=== PATIENT | female | born 1980 | race Caucasian/White ===

== ENCOUNTER 2020-11-19 07:13 | Inpatient (IN) | payer OTHER ==
[~2020-11-19] VITALS: Ht 154.9 cm; Wt 73.9 kg
[2020-11-19 07:17] VITALS: BP 120/63
--- NOTE | 2020-11-19 09:42 | NUR ---
UNABLE TO OBTAIN IV ACCESS. DR MADRIGAL AT THE BEDSIDE ATTEMPTING WITH ULTRASOUND
--- NOTE | 2020-11-19 09:53 | NUR ---
DR MADRIGAL UNABLE TO OBTAIN IV ACCESS AT THIS TIME.
[2020-11-19 11:54] LABS: BASOPHILS 0.2 % (0.0-2.0); HEMATOCRIT 40.3 % (37.0-47.0); HEMOGLOBIN 13.6 gm/dL (12.0-15.0); LYMPHOCYTES 12.1 % (24.0-44.0); MCH 28.5 pg (26.0-34.0); MCHC 33.7 g/dL (28.0-37.0); MCV 84.7 fL (80.0-100.0); MONOCYTES 3.2 % (1.0-8.0); PLATELET COUNT 302 thou/uL (150-400); POLYS 84.5 % (36.0-66.0); RBC 4.76 mil/uL (4.20-5.00); RDW 13.2 % (10.5-14.5); WBC 8.3 thou/uL (4.0-11.0)
[2020-11-19 12:04] VITALS: BP 132/86
[2020-11-19 12:05] LABS: CALCIUM 8.8 mg/dL (8.5-10.1); CREATININE 0.6 mg/dL (0.6-1.0); POTASSIUM 3.8 mmol/L (3.5-5.1)
[2020-11-19 14:45] VITALS: BP 132/86
[2020-11-19 15:07] VITALS: BP 112/70
[2020-11-19 15:31] VITALS: BP 114/84
--- NOTE | 2020-11-19 16:32 | NUR ---
ASSUMED PT CARE AT 1330 FROM ER. PT IS ALERT & ORIENTED X4 AND CITIZEN OF [place] SPEAKER. PT HAS IV SITE ON L AC 20 GAUGE SALINE LOCKED. PT HAS BOOTS ON R FOOT. PT HAS EXTERNAL CATH IN PLACE. PT C/O OF PAIN ON R FOOT AND L ANKLE. GIVEN PAIN MEDICATION PER PT REQUEST. FINISHED ADMISSION. PT WILL BE NPO AFTER MIDNIGHT AND WILL HAVE SURGERY KATHERINE. PT DAUGHTER AT THE BEDSIDE. PT ON THE BED, BED ON THE LOWEST POSITION, SIDE RAILS UP, CALL LIGHT WITHIN REACH. WILL CONTINUE TO MONITOR PT. FOLLOW POC.
[2020-11-19 20:00] VITALS: BP 113/74
--- NOTE | 2020-11-20 01:42 | NUR ---
ASSUMED CARFE OF PT AT 1900. BEDSIDE REPORT RECIEVED. FAMILY MEMBERS AT BEDSIDE. EMILIE ASSESSMENT COMPLETE. RLE IN IMMOBILZER BOOT. LLE SPLINTED IN BRACE C SCOTT WRAP. PT C/O 10/10 PAIN IN BLE. PAIN MEDS GIVEN ORDERED, REPOSITIONING FOR COMFORT. PT NPO AT MIDNIGHT D/T SURGERY IN AM, PROVIDED EDUCATION TO PT AND FAMILY MEMBER, VERBALIZED UNDERSTANDING. L AC PIV CDI, PATENT. CONTINUING TO MONITOR PT, ALL NEEDS MET, [facility].
[2020-11-20 04:30] VITALS: BP 112/76
[2020-11-20 07:52] VITALS: BP 124/79
--- NOTE | 2020-11-20 10:14 | NUR ---
ASSUMED PT CARE THIS AM. PT IS ALERT & ORIENTED X4. PT HAS IV SITE ON LAC SALINE LOCKED. PT IS GREEK SPEAKER. PT IS ON ROOM AIR. PT IS CURRENTLY HAVING SURGERY. AWAITING FOR PT. PT DAUGHTER AT THE BEDSIDE WAITING. WILL CONTINUE TO MONITOR PT. FOLLOW POC.
[2020-11-20 12:34] VITALS: BP 114/78
[2020-11-20 14:08] VITALS: BP 129/82
[2020-11-20 19:22] VITALS: BP 105/59
[2020-11-21 04:49] VITALS: BP 93/55
--- NOTE | 2020-11-21 04:52 | NUR ---
PT SLEPT MOST PART OF THE NIGHT, REPORTED PAIN ON THE LEFT FOOT PRN MEDICATION ADMINISTERED, NO ADVERSE REACTION NOTED, WENT BACK TO SLEEPING CALL LIGHT WITHIN REACH, LIGHTS OFF WILL CONTINUE TO MONITOR.
[2020-11-21 08:20] VITALS: BP 103/66
--- NOTE | 2020-11-21 11:34 | NUR ---
ASSESSMENT: CM REVIEWED CHART. PT IS MALAYSIAN SPEAKING PRIMARILY BUT FAMILY IS AT THE BEDSIDE AND SPEAKS [place]. PT LIVES IN A HOUSE WITH HER FAMILY. PT WAS ADMITTED AFTER A FALL AND LEFT ANKLE FX. PT IS S/P ORIF. PT REPORTS THAT HER CAN BUILT A RAMP TO ENTER THE HOME AND THEY HAVE 3 STEPS. PT REPORTS THAT NORMALLY SHE WAS INDEPENDENT WITH ADLS AND AMBULATION BUT REPORTS THEY DO HAVE FAMILY MEMBERS THAT THEY CAN BORROW A WHEELCHAIR AND CRUTCHES FROM AND THINK THEY MAY ALSO HAVE A WALKER. CM NOTIFIED PT TO VERIFY WITH FAMILY AND LEFT CM KNOW CM CAN ATTEMPT TO ASSIST WITH ANY NEEDED EQUIPMENT. PT DOES NOT HAVE INSURANCE. CM PROVIDED PATIENT WITH SAFETY NET CLINICS/ HEALTH RESOURCE PACKET. PT CONTINUES TO WORK WITH THERAPIES. CM WILL CONTINUE TO FOLLOW TO ASSIST NEEDED.
--- NOTE | 2020-11-21 15:19 | O ---
[facility] [address] OPERATIVE REPORT Name: JUANITA SOLIMAN Room #: 440-P ADM IN M.R.#: [id number] Admission: 11/19/20 Attend Phys: Adrian Sanchez, Discharge: Date of : 80 Report #: [id number] THIS REPORT FOR: cc: FAM - Clinic physician unknown FAM - No family physician/PCP Tutu Billings MD ~ DATE OF SERVICE: 11/20/2020 PREOPERATIVE DIAGNOSIS: Left ankle fracture dislocation with lateral malleolus fracture and syndesmotic injury. POSTOPERATIVE DIAGNOSIS: Left ankle fracture dislocation with lateral malleolus fracture and syndesmotic injury. PROCEDURES: 1. ORIF lateral malleolus. 2. ORIF left ankle syndesmosis. SURGEON: Tutu Billings MD. CREDIT REPORTER: Regi Parker PA-C. INDICATION FOR CREDIT REPORTER: Throughout the case, extensive retraction, manipulation of the ankle was required. This was afforded to me by my surgical physician assistant. ANESTHESIA: LMA. TOURNIQUET TIME: 35 minutes. IMPLANTS: Emanuel [employer]hew lateral distal fibular locking plate with multiple two 7 and 3.5 mm screws. ESTIMATED BLOOD LOSS: Minimal. COMPLICATIONS: None. SPECIMENS: None. CONDITION UPON LEAVING THE OR: Stable. INDICATIONS FOR PROCEDURE: The patient is a 40-year-old female who tripped at home and sustained a left ankle fracture dislocation. She had her ankle reduced in the Emergency Room and was admitted for definitive treatment. In addition, she has a right fifth metatarsal fracture that is being treated nonoperatively. [facility] [address] [place] [address] OPERATIVE REPORT Name: JUANITA SOLIMANDIRA Room #: 440-P ADM IN M.R.#: [id number] Admission: 11/19/20 Attend Phys: Adrian Sanchez, Discharge: Date of : 80 Report #: [id number] DESCRIPTION OF PROCEDURE: Risks, benefits, alternatives and complications were discussed in detail with the patient including but not limited to risk of anesthesia, risk of damage to nerves, arteries, blood vessels, risk for infection, bleeding, risk for continued ankle pain, ___ need for reoperation. Informed consent was obtained from the patient. The left ankle was appropriately marked in the preoperative holding area. IV Ancef was given for preoperative antibiotics. She was brought to the operating room and placed in the supine position on the operating table. LMA anesthesia was induced without complication. Tourniquet was placed on the left thigh and left lower extremity was prepped and draped in normal sterile fashion. Timeout was performed properly identifying the patient and procedure as well as the instrumentation and the implants. All in the operating room in agreement. Left lower extremity was exsanguinated and tourniquet inflated. Tourniquet time was 35 minutes. Standard approach through the lateral distal fibula was made with a 10-blade through the skin. Dissection was taken down sharply to the distal fibula with a 15-blade, and anterior and posterior dissection was performed to clean off the bone. The fracture was easily identified, curetted out of hematoma and thoroughly irrigated, it was then held reduced with a [id number] reduction forceps. Fluoroscopic imaging was brought in to verify adequate fracture reduction. Emanuel [employer]hew distal fibular locking plate was then placed on the fibula at the appropriate level and two distal 2.7 screws were placed, 2 proximal, 2.7 cortical screws were placed all of appropriate length. Two additional distal locking screws were placed. After this, fluoroscopic imaging was brought in to verify adequate fracture reduction and placement of hardware. Intraoperative external rotation stress test was performed and the medial clear space did open and it was felt that there was a syndesmotic injury involved. Two 3.5 mm syndesmotic screws were placed through the plate for syndesmotic fixation. After this, repeat external rotation stress test was performed and found to have good stability of the syndesmosis. Fracture was relatively well reduced and there was adequate placement of hardware under fluoroscopic imaging. The wound was thoroughly irrigated with normal saline. Deep tissue was closed with 0 Vicryl. Skin was closed with 2-0 Vicryl, 3-0 nylon and a short leg splint was applied. The patient tolerated this procedure well and went to recovery room under care of anesthesia postoperatively. <ELECTRONICALLY SIGNED> By: Tutu Billings MD 11/21/20 1519 [id number] Tutu Billings MD /nt
[2020-11-21 15:37] VITALS: BP 103/62
--- NOTE | 2020-11-21 16:30 | NUR ---
Called Dr. Billings's office numher about whether we were discharge the patient or not, no response yet.
--- NOTE | 2020-11-21 16:41 | NUR ---
A/O, calm and pleasant, complained pain in the surgical area, pain medication given and worked. no nausea or vomiting. chair rest, daughter bedside.
[2020-11-21 19:44] VITALS: BP 111/74
--- NOTE | 2020-11-22 02:42 | NUR ---
PT IS A/O X4 AND IS UP WITH ASSISTANCE X1 TO CHAIR/BSC. C/O RIGHT FOOT PAIN. REQUESTED THAT NURSE TAKE OFF BOOT WHILE IN BED. PRN PAIN MEDICATION GIVEN DIRECTED. PT ASKED TWICE FOR PAIN MEDICATION 2 HOURS BEFORE AVAILABLE. NOTIFIED SURGEON. ORDERS GIVEN FOR PRN PAIN MEDICATION INCREASE FROM ONE TABLET TO 2. PARTIAL RELIEF NOTED. AT THIS TIME, PT IS LYING IN HER BED AND APPEARS TO BE SLEEPING WITH EYES CLOSED. VSS. AFEBRILE. WILL CONTINUE TO MONITOR.
[2020-11-22 04:46] VITALS: BP 112/54
[2020-11-22 08:19] VITALS: BP 117/88
--- NOTE | 2020-11-22 09:50 | NUR ---
ASSUMED PT CARE THIS AM. PT IS ALERT & ORIENTED X4 AND [place] SPEAKER. PT HAS IV SITE ON LAC SALINE LOCKED. PT C/O OF PAIN AND GIVEN PAIN MEDICATION PER PT REQUEST. PHYSICAL THERAPY WORKING WITH PATIENT THIS AM. PT DAUGHTER AT THE BEDSIDE. NO C/O OF NAUSEA AND VOMITING. WILL CONTINUE TO MONITOR PT. FOLLOW POC.
[2020-11-22 11:41] VITALS: BP 117/88
--- NOTE | 2020-11-22 11:47 | NUR ---
ON-GOING ASSESSMENT: CM REVIEWED CHART. ORTHO IS REQUESTING PT HAVE HOME HEALTH AT DISCHARGE. PT HAS NO INSURANCE. CM SPOKE WITH [facility] WHO IS AGREEABLE TO DO A FEW [facility] HEALTH VISITS WITH PATIENT. CM MET WITH PATIENT AND HER FAMIYL WHO IS AGREEABLE WITH THIS PLAN. DAUGHTER REPORTS THAT PTS FATHER HAS THE WHEELCHAIR AT HOME FOR PT WELL THE WALKER. PT REPORTS NO FURTHER NEEDS FROM CM. CM ALREADY PROVIDED PATIENT WITH OUTPATIENT FOLLOW UP CLINICS/HEALTH RESOURCE PACKET. CM NOTIFIED BEDSIDE RN. PLANS FOR DISCHARGE TODAY.
[2020-11-22] MEDS ORDERED: HYDROCODON-ACE1 EAC7 PO (12:09)
[2020-11-22] MEDS ORDERED: BAYER CHEWABLE81 MG PO (12:09)
[2020-11-22] MEDS ORDERED: MIRALAX17 G1 PO (12:10)
== END 2020-11-22 13:56 | disposition home health service (06) | DRG 494 ==
LOC: ER 07:13 → EROBS 13:02 → 4S 15:23
PROVIDERS: Emergency Medicine; ADMIT Surgery; ATTEND Surgery
DX: S82.62XA Displaced fracture of lateral malleolus of left fibula, initial encounter for closed fracture (principal); S92.354A Nondisplaced fracture of fifth metatarsal bone, right foot, initial encounter for closed fracture; W18.39XA Other fall on same level, initial encounter; Y93.89 Activity, other specified; Y92.89 Other specified places as the place of occurrence of the external cause; Y99.8 Other external cause status
CPT/HCPCS: 10102; 50101; 50386; 56525; 56528; 57091; 57178; 58479; 58480; 59003; 59004; 59005; 59006; 59007; 62110; 62900; 64039; 70005